=== PATIENT | female | born 1975 | race Caucasian/White ===

== ENCOUNTER → 2016-11-11 | Outpatient (CLI) | payer BC ==
[2016-11-11 13:11] LABS: BASO % 0.3 %; BASO ABS # 0.01 K/uL (0-0.2); COMPLETE YES; EOS % 0.3 %; HEMATOCRIT 39.5 % (37-47); MEAN CELL VOLUME 84.9 fL (80-100); MEAN CORPUSCULAR HEMOGLOBIN 28.6 pg (25-34); MEAN CORPUSCULAR HGB CONC 33.7 g/dl (32-36); MEAN PLATELET VOLUME 10.9 fL (7.4-10.4); MONO % 8.3 %; NEUT % 75.1 %; PLATELET COUNT 189 K/uL (130-400); RED BLOOD COUNT 4.65 M/uL (4.2-5.4); WHITE BLOOD COUNT 3.13 K/uL (4.8-10.8)
== END | disposition home or self-care (01) ==
LOC: C.LABMFLN 09:01
PROVIDERS: ATTEND Family Medicine
DX: L65.9 Nonscarring hair loss, unspecified (principal)

== ENCOUNTER → 2017-03-31 | Outpatient (CLI) | payer BC | END | disposition home or self-care (01) | LOC: C.PAPS 14:37 | PROVIDERS: ATTEND Family Medicine | DX: Z01.419 Encounter for gynecological examination (general) (routine) without abnormal findings (principal) ==

== ENCOUNTER → 2017-04-07 | Outpatient (CLI) | payer BC ==
[2017-04-07 13:16] LABS: BASO % 0.3 %; BASO ABS # 0.01 K/uL (0-0.2); COMPLETE YES; EOS % 4.1 %; HEMATOCRIT 37.8 % (37-47); IG% 0.3 %; LYMPH % 31.7 %; LYMPH ABS # 0.93 K/uL (1.2-3.4); MEAN CELL VOLUME 83.1 fL (80-100); MEAN CORPUSCULAR HEMOGLOBIN 28.4 pg (25-34); MEAN CORPUSCULAR HGB CONC 34.1 g/dl (32-36); MEAN PLATELET VOLUME 10.4 fL (7.4-10.4); MONO % 7.5 %; NEUT % 56.1 %; PLATELET COUNT 244 K/uL (130-400); RED BLOOD COUNT 4.55 M/uL (4.2-5.4); WHITE BLOOD COUNT 2.93 K/uL (4.8-10.8)
[2017-04-07 13:45] LABS: BLOOD UREA NITROGEN 12 mg/dl (7-18); BUN/CREATININE RATIO 21.4 (10-20); CALCIUM 9.1 mg/dl (8.5-10.1); CARBON DIOXIDE 30 mmol/L (21-32); CHLORIDE 106 mmol/L (98-107); CHOLESTEROL 179 mg/dl (0-200); CREATININE 0.56 mg/dl (0.60-1.20); GLUCOSE 84 mg/dl (70-99); PHOSPHORUS 2.9 mg/dl (2.5-4.9); SODIUM 140 mmol/L (136-145); TRIGLYCERIDES 89 mg/dl (0-150); VERY LOW DENSITY LIPOPROT CALC 18 mg/dl
[2017-04-07 13:46] LABS: CHOLESTEROL/HDL RATIO 2.9; HDL CHOLESTEROL 62 mg/dl; LDL CHOLESTEROL CALCULATED 99 mg/dl
== END | disposition home or self-care (01) ==
LOC: C.LABMFLN 07:08
PROVIDERS: ATTEND Family Medicine
DX: K21.9 Gastro-esophageal reflux disease without esophagitis (principal); Z13.220 Encounter for screening for lipoid disorders

== ENCOUNTER → 2017-04-17 | Outpatient (CLI) | payer BC ==
--- NOTE | 2017-04-17 15:45 | MAMMOGRAPHY REPORT ---
BILATERAL DIGITAL SCREENING MAMMOGRAM TOMOSYNTHESIS WITH CAD: 04/17/2017 CLINICAL HISTORY: Routine screening. Patient has no complaints. TECHNIQUE: Breast tomosynthesis in addition to standard 2D mammography was performed. Current study was also evaluated with a Computer Aided Detection (CAD) system. COMPARISON: Comparison is made to exams dated: 04/14/2016 mammogram - [facility], mammogram, 03/25/2014 mammogram, and 01/14/2013 mammogram - [facility]. BREAST COMPOSITION: The tissue of both breasts is extremely dense, which lowers the sensitivity of m ammography. FINDINGS: The parenchymal pattern is unchanged. No developing mass, architectural distortion or clus ter of suspicious microcalcifications is seen in either breast. IMPRESSION: ACR BI-RADS CATEGORY 2: BENIGN There is no mammographic evidence of malignancy. A 1 year screening mammogram is recommended. The pa tient will receive written notification of the results. Approximately 10% of breast cancers are not detected with mammography. A negative mammographic report should not delay biopsy if a clinically suggestive mass is present. Monisha Jimenez M.D. ay/:04/17/2017 13:32:00 Engagement Specialist: Kathleen BERMUDEZ(Etelvina)(Eliel)([place]), [facility] letter sent: Normal 1/2 BI-RADS Code: ACR BI-RADS Category 2: Benign
== END | disposition home or self-care (01) ==
LOC: C.MAMM 13:02
PROVIDERS: ATTEND Family Medicine
DX: Z12.31 Encounter for screening mammogram for malignant neoplasm of breast (principal)

== ENCOUNTER → 2017-07-18 | Outpatient (CLI) | payer BC ==
[2017-07-18 12:41] LABS: BASO % 0.2 %; BASO ABS # 0.01 K/uL (0-0.2); EOS % 2.7 %; EOS ABS # 0.13 K/uL (0-0.5); HEMATOCRIT 38.9 % (37-47); HEMOGLOBIN 13.1 g/dL (12.0-16.0); IG# 0.01 K/uL (0.00-0.02); LYMPH % 26.4 %; LYMPH ABS # 1.25 K/uL (1.2-3.4); MEAN CELL VOLUME 84.9 fL (80-100); MEAN CORPUSCULAR HEMOGLOBIN 28.6 pg (25-34); MEAN CORPUSCULAR HGB CONC 33.7 g/dl (32-36); MEAN PLATELET VOLUME 10.5 fL (7.4-10.4); MONO % 7.2 %; MONO ABS # 0.34 K/uL (0.11-0.59); NEUT % 63.3 %; PLATELET COUNT 221 K/uL (130-400); RED CELL DISTRIBUTION WIDTH CV 12.9 % (11.5-14.5); RED CELL DISTRIBUTION WIDTH SD 40.1 fL (36.4-46.3); WHITE BLOOD COUNT 4.74 K/uL (4.8-10.8)
== END | disposition home or self-care (01) ==
LOC: C.LABMFLN 09:15
PROVIDERS: ATTEND Family Medicine
DX: D72.819 Decreased white blood cell count, unspecified (principal)